=== PATIENT | female | born 1995 | race Caucasian/White ===

== ENCOUNTER → 2017-09-09 14:47 | Outpatient (CLI) | payer OTHER ==
[~2017-09-09] VITALS: Ht 152.4 cm; Wt 60.8 kg
[~2017-09-09 14:47] MED LIST: [UNRECOGNIZED DRUG - OTHER]
== END | disposition home or self-care (01) ==
LOC: PPHC 14:47
DX: J30.89 Other allergic rhinitis (principal)

== ENCOUNTER → 2017-11-26 | Outpatient (CLI) | payer OTHER ==
[~2017-11-26] VITALS: Ht 152.4 cm; Wt 59.9 kg
== END | disposition home or self-care (01) ==
LOC: PPHC 16:02
DX: R51 Headache (principal)

== ENCOUNTER 2017-11-27 09:54 | Outpatient (CLI) | payer OTHER | END 2017-11-27 09:55 | disposition home or self-care (01) | LOC: LAB 09:54 | DX: R51 Headache (principal); R42 Dizziness and giddiness ==

== ENCOUNTER 2017-11-27 10:06 | Outpatient (CLI) | payer OTHER | END 2017-11-27 10:07 | disposition home or self-care (01) | LOC: RAD 10:06 → LAB 10:06 | DX: M54.2 Cervicalgia (principal) ==

== ENCOUNTER 2018-11-03 17:00 | Outpatient (CLI) | payer OTHER | END 2018-11-03 17:13 | disposition home or self-care (01) | LOC: RAD 17:00 | DX: M79.674 Pain in right toe(s) (principal) ==

== ENCOUNTER → 2020-01-01 10:02 | Outpatient (CLI) | payer OTHER | END | disposition home or self-care (01) | LOC: LAB 10:02 | DX: E55.9 Vitamin D deficiency, unspecified (principal); E78.49 Other hyperlipidemia; E11.9 Type 2 diabetes mellitus without complications; E03.8 Other specified hypothyroidism; N39.0 Urinary tract infection, site not specified; I10 Essential (primary) hypertension; Z12.11 Encounter for screening for malignant neoplasm of colon ==

== ENCOUNTER 2020-01-01 10:46 | Outpatient (CLI) | payer OTHER | END 2020-01-01 10:55 | disposition home or self-care (01) | LOC: SONOGRAMA 10:46 | DX: Z12.31 Encounter for screening mammogram for malignant neoplasm of breast (principal); O92.6 Galactorrhea ==

== ENCOUNTER 2020-01-04 14:30 | Outpatient (CLI) | payer OTHER | END 2020-01-04 15:00 | disposition home or self-care (01) | LOC: MRI 14:30 | DX: O92.6 Galactorrhea (principal) | CPT/HCPCS: 70551 ==

== ENCOUNTER 2025-08-25 23:13 | Emergency (ER) | payer OTHER ==
[~2025-08-25] VITALS: Ht 157.5 cm; Wt 71.7 kg
[2025-08-25] MEDS ORDERED: RAYOS1 MG (23:33)
[2025-08-26] MEDS ORDERED: PROMETHAZINE HCL 50 MG/ML AMPUL IM STA (00:20)
[2025-08-26] MEDS ORDERED: FAMOTIDINE/PF 20 MG/2 ML VIAL IV PUSH STA (00:21)
[2025-08-26] MEDS ORDERED: 0.9 % SODIUM CHLORIDE 1,000 ML IV ONE (00:30)
[2025-08-26] MEDS ORDERED: FAMOTIDINE/PF 20 MG/2 ML VIAL ONE (00:41)
[2025-08-26] MEDS ORDERED: PROMETHAZINE HCL 50 MG/ML AMPUL IM ONE (00:41)
[2025-08-26 00:43] LABS: BASO % 0.0 % (0.1-1.2); EOS # 0.03 (0.04-0.54); EOS % 0.4 % (0.7-7.0); LYMPH # 0.52 (1.18-3.74); LYMPH % 6.7 % (19.3-53.1); MEAN PLATELET VOLUME 10.30 fl (9.4-12.4); MONO # 0.37 (0.24-0.82); MONO % 4.7 % (4.7-12.5); NEUT # 6.84 (1.56-6.13); NEUT % 87.7 % (34.0-71.1); RED CELL DISTRIBUTION WIDTH 11.8 % (11.6-14.4)
[2025-08-26 01:41] LABS: ALT/SGPT 21.0 U/L (12-78); AST/SGOT 18.0 U/L (15-37); BILIRUBIN TOTAL 1.25 mg/dL (0.3-1.2); BUN CREA RATIO 19.0 (7.0-25.0); CREATININE SERUM 0.86 mg/dL (0.55-1.02); GFR 79.15; GLOBULINA 3.2 G/DL (2.4-3.5); GLUCOSE FASTING 107.0 mg/dL (65-100); OSMOLALITY SERUM 277.0 MOSM/KG (275-295)
[2025-08-26 02:09] LABS: COVID-19 AG NEGATIVE (NEGATIVE)
[2025-08-26 04:34] LABS: URINE APPEARANCE Clear; URINE BILIRRUBIN Negative (NEGATIVE); URINE BLOOD Large; URINE COLOR Yellow; URINE GLUCOSE Negative (NEGATIVE); URINE KETONE 15 (NEGATIVE); URINE LEUKOCYTE Trace; URINE NITRATE Negative; URINE PROTEIN Negative (NEGATIVE); URINE UROBILINOGEN 0.2 E.U./dl
[2025-08-26 04:38] LABS: URINE BACTERIA 1012.3 uL (0.0-1933); URINE CAST 0.00 uL (0.0-1.40); URINE EPITHELIAL CELLS 27.4 uL (0.0-38.8); URINE RBC 95.6 uL (0.0-20.8); URINE WBC 20.5 uL (0.0-23.2)
[2025-08-26] MEDS ORDERED: ONDANSETRON HCL 2 MG/ML VIAL IV STA (05:19)
[2025-08-26] MEDS ORDERED: ONDANSETRON HCL 2 MG/ML VIAL ONE (05:19)
[2025-08-26] MEDS ORDERED: ZOFRAN8 MG PO (07:12)
[2025-08-26] MEDS ORDERED: PEPCID40 MG PO (07:12)
== END 2025-08-26 07:52 ==
LOC: ER 23:13
PROVIDERS: General Practice
DX: E86.0 Dehydration (principal); R11.10 Vomiting, unspecified; R50.9 Fever, unspecified; R51.9 Headache, unspecified; R05.8 Other specified cough; Z20.822 Contact with and (suspected) exposure to COVID-19